=== PATIENT | female | born 1970 | race Caucasian/White ===

== ENCOUNTER 2020-07-13 04:49 | Emergency (ER) | payer OTHER ==
[2020-07-13 05:26] VITALS: TEMP 98.4; BMI 32.7
[2020-07-13] MEDS ORDERED: FAMOTIDINE 20 MG TABLET PO ONE (05:41)
[2020-07-13] MEDS ORDERED: FAMOTIDINE 20 MG TABLET ONE (05:48)
[2020-07-13 06:41] LABS: HEMATOCRIT 39.6 % (32.4-45.2); HEMOGLOBIN 13.5 GM/dL (10.7-15.3); MCH 29.8 pg (25.7-33.7); MEAN CELL VOLUME 87.7 fl (80-96); MEAN PLT VOLUME 9.2 fl (7.5-11.1); PLATELET COUNT 311 K/MM3 (134-434); RBC 4.52 M/mm3 (3.60-5.2); WHITE BLOOD COUNT 9.5 K/mm3 (4.0-10.0)
[2020-07-13 06:55] LABS: CHLORIDE 103 mmol/L (98-107); SODIUM 137 mmol/L (136-145)
[2020-07-13 06:57] LABS: CALCIUM 9.4 mg/dL (8.5-10.1)
[2020-07-13 06:58] LABS: ALBUMIN 3.9 g/dl (3.4-5.0); ANION GAP 6 MMOL/L (8-16); BLOOD UREA NITROGEN 8.7 mg/dL (7-18); CO2 28 mmol/L (21-32); GLUCOSE,RANDOM 88 mg/dL (74-106); LIPASE 87 U/L (73-393)
[2020-07-13 07:01] LABS: CREATININE 0.9 mg/dL (0.55-1.3); SGOT/AST 24 U/L (15-37); SGPT/ALT 21 U/L (13-61)
[2020-07-13 07:02] LABS: BILIRUBIN,TOTAL 0.5 mg/dL (0.2-1); TOT PROT 7.7 g/dl (6.4-8.2)
[2020-07-13 07:04] LABS: ALK PHOS 94 U/L (45-117)
[2020-07-13 07:44] VITALS: BP 120/61; PULSE 81
== END 2020-07-13 07:44 | disposition home or self-care (01) ==
LOC: JER 04:49
DX: R10.13 Epigastric pain (principal)
CPT/HCPCS: 36415; 71046-TC-FY; 80053; 82550; 82553; 83690; 84484; 85027; 93005; 93010; 99285-25

== ENCOUNTER 2020-07-16 09:33 | Emergency (ER) | payer OTHER ==
[2020-07-16 09:39] VITALS: BP 137/90; PULSE 116; TEMP 98; BMI 33.0
== END 2020-07-16 11:34 | disposition home or self-care (01) ==
LOC: JER 09:33
DX: R00.2 Palpitations (principal); T50.B95A Adverse effect of other viral vaccines, initial encounter
CPT/HCPCS: 36415; 82550; 82553; 84484; 85379; 93005; 93010; 99284-25